=== PATIENT | male | born 1935 | race Hispanic/Latino ===

== ENCOUNTER 2017-07-26 10:41 | Day surgery (SDC) | payer MEDICARE, OTHER ==
[~2017-07-26 10:41] MED LIST: IOPIDINE ONE; MYDRIACYL ONE; NEOFRIN ONE
[2017-07-26] MEDS ORDERED: IOPIDINE OS ONE (11:50)
[2017-07-26] MEDS ORDERED: MYDRIACYL OS ONE (11:50)
[2017-07-26] MEDS ORDERED: NEOFRIN OS ONE (11:50)
[2017-07-26 12:36] VITALS: BP 110/68
== END 2017-07-26 10:42 | disposition home or self-care (01) ==
LOC: OR 10:41
PROVIDERS: ATTEND Specialist
DX: H26.492 Other secondary cataract, left eye (principal); I10 Essential (primary) hypertension; E78.00 Pure hypercholesterolemia, unspecified; K21.9 Gastro-esophageal reflux disease without esophagitis; Z87.891 Personal history of nicotine dependence